=== PATIENT | male | born 1945 | race Caucasian/White ===

== ENCOUNTER 2016-10-20 09:25 | Emergency (ER) | payer MEDICARE, OTHER ==
[~2016-10-20] VITALS: Ht 188 cm; Wt 104.0 kg
[~2016-10-20 09:25] MED LIST: ACET-1757 PO; CALC300T5 PO; CYAN100028 PO; MULT-6 PO
[2016-10-20] MEDS ORDERED: SODIUM CHLORIDE 0.9% 1,000 ML IV ONE (10:24)
[2016-10-20] MEDS ORDERED: SODIUM CHLORIDE 0.9% 1,000ML IVBOLUS ONE (10:30)
[2016-10-20] MEDS ORDERED: SODIUM CHLORIDE FLUSH 10ML SYR IVF ONE (10:30)
[2016-10-20 10:58] LABS: ASPARTATE AMINO TRANSFERASE 21 U/L (15-37); BLOOD UREA NITROGEN 27 mg/dL (7-18)
[2016-10-20 11:01] VITALS: BP 119/74
[2016-10-21] MEDS ORDERED: TAMS0.4C2 PO (01:54)
[2016-10-21] MEDS ORDERED: FENO160T PO (01:56)
[2016-10-21] MEDS ORDERED: LEVO5TAB29 PO (01:58)
== END 2016-10-20 12:29 | disposition home or self-care (01) ==
LOC: ED 12:17
DX: R19.7 Diarrhea, unspecified (principal); E86.0 Dehydration; Z87.891 Personal history of nicotine dependence
CPT/HCPCS: 36415; 74020; 80053; 85025; 93005; 99285; J7030

== ENCOUNTER 2016-10-20 22:23 | Inpatient (IN) | payer MEDICARE, OTHER ==
[~2016-10-20] VITALS: Ht 188 cm; Wt 106.9 kg
[2016-10-21] MEDS ORDERED: ONDANSETRON 2MG/ML, 2ML ONE (00:42)
[2016-10-21] MEDS ORDERED: ONDANSETRON 2MG/ML, 2ML IVPush ONE (01:00)
[2016-10-21] MEDS ORDERED: SODIUM CHLORIDE 0.9% 1,000ML IVBOLUS ONE (01:00)
[2016-10-21] MEDS ORDERED: SODIUM CHLORIDE FLUSH 10ML SYR IVF ONE (01:00)
[2016-10-21 01:26] LABS: ASPARTATE AMINO TRANSFERASE 20 U/L (15-37); BLOOD UREA NITROGEN 40 mg/dL (7-18)
[2016-10-21] MEDS ORDERED: TAMS0.4C2 PO (01:54)
[2016-10-21] MEDS ORDERED: FENO160T PO (01:56)
[2016-10-21] MEDS ORDERED: LEVO5TAB29 PO (01:58)
[2016-10-21] MEDS ORDERED: TRAZODONE 50MG TABLET PO PRN (02:30)
[2016-10-21] MEDS ORDERED: DOCUSATE 100 MG CAPSULE PO PRN (02:30)
[2016-10-21] MEDS ORDERED: ACETAMINOPHEN 325 MG TABLET PO PRN (02:30)
[2016-10-21] MEDS ORDERED: BISACODYL 10 MG SUPP PR PRN (02:30)
[2016-10-21] MEDS ORDERED: POLYETHYLENE GLYCOL 17 GM PACKET PO PRN (02:30)
[2016-10-21] MEDS ORDERED: hydrALAzine 20 MG/ML, 1ML IVPush PRN (02:30)
[2016-10-21 02:37] VITALS: BP 124/78
[2016-10-21] MEDS: SODIUM CHLORIDE 0.9% 1,000 ML IV SCH ×5 (02:59→20:51)
[2016-10-21] MEDS: HEPARIN 5,000 UNITS/ML, 1ML SQ SCH ×3 (02:59→17:54)
[2016-10-21 05:38] LABS: BLOOD UREA NITROGEN 39 mg/dL (7-18)
[2016-10-21 06:56] VITALS: BP 97/53
[2016-10-21] MEDS: MULTIVITAMIN 1 TABLET PO SCH (08:32)
[2016-10-21] MEDS: CYANOCOBALAMIN 1,000 MCG TABLET PO SCH (08:32)
[2016-10-21] MEDS: TAMSULOSIN 0.4 MG CAP.ER.24H PO SCH (08:32)
[2016-10-21] MEDS: FENOFIBRATE 145 MG TABLET PO SCH (08:32)
[2016-10-21 13:52] VITALS: BP 112/77
[2016-10-21 19:52] VITALS: BP 115/74
[2016-10-22] MEDS: SODIUM CHLORIDE 0.9% 1,000 ML IV SCH ×4 (02:31→21:32)
[2016-10-22] MEDS: HEPARIN 5,000 UNITS/ML, 1ML SQ SCH ×3 (02:31→18:47)
[2016-10-22 02:54] VITALS: BP 111/67
[2016-10-22 07:35] VITALS: BP 147/79
[2016-10-22 08:32] LABS: ASPARTATE AMINO TRANSFERASE 17 U/L (15-37); BLOOD UREA NITROGEN 38 mg/dL (7-18)
[2016-10-22] MEDS: TAMSULOSIN 0.4 MG CAP.ER.24H PO SCH (08:59)
[2016-10-22] MEDS: FENOFIBRATE 145 MG TABLET PO SCH (08:59)
[2016-10-22] MEDS: CYANOCOBALAMIN 1,000 MCG TABLET PO SCH (08:59)
[2016-10-22] MEDS: MULTIVITAMIN 1 TABLET PO SCH (08:59)
[2016-10-22] MEDS: LOPERAMIDE 2 MG CAPSULE PO PRN (14:16)
[2016-10-22 14:33] VITALS: BP 126/70
[2016-10-22 20:05] VITALS: BP 119/76
[2016-10-23] MEDS: HEPARIN 5,000 UNITS/ML, 1ML SQ SCH ×3 (02:42→18:21)
[2016-10-23 03:07] VITALS: BP 112/71
[2016-10-23 05:28] LABS: BLOOD UREA NITROGEN 32 mg/dL (7-18)
[2016-10-23 07:50] VITALS: BP 123/72
[2016-10-23] MEDS: FENOFIBRATE 145 MG TABLET PO SCH (10:10)
[2016-10-23] MEDS: MULTIVITAMIN 1 TABLET PO SCH (10:10)
[2016-10-23] MEDS: TAMSULOSIN 0.4 MG CAP.ER.24H PO SCH (10:10)
[2016-10-23] MEDS: CYANOCOBALAMIN 1,000 MCG TABLET PO SCH (10:10)
[2016-10-23 14:30] VITALS: BP 125/75
[2016-10-23] MEDS: LOPERAMIDE 2 MG CAPSULE PO PRN (17:19)
[2016-10-23 19:13] VITALS: BP 116/68
[2016-10-24] MEDS: SODIUM CHLORIDE 0.9% 1,000 ML IV SCH ×3 (00:17→13:44)
[2016-10-24 01:43] VITALS: BP 109/60
[2016-10-24] MEDS: HEPARIN 5,000 UNITS/ML, 1ML SQ SCH ×2 (02:42→09:02)
[2016-10-24 05:23] LABS: BLOOD UREA NITROGEN 23 mg/dL (7-18)
[2016-10-24 05:32] LABS: ASPARTATE AMINO TRANSFERASE 20 U/L (15-37)
[2016-10-24] MEDS ORDERED: LOPE2CAP PO (06:44)
[2016-10-24 07:49] VITALS: BP 124/78
[2016-10-24] MEDS ORDERED: MAGNESIUM SULFATE PMX 2GM/50ML 50 ML IV ONE (08:00)
[2016-10-24] MEDS: MULTIVITAMIN 1 TABLET PO SCH (08:59)
[2016-10-24] MEDS: FENOFIBRATE 145 MG TABLET PO SCH (08:59)
[2016-10-24] MEDS: CYANOCOBALAMIN 1,000 MCG TABLET PO SCH (08:59)
[2016-10-24] MEDS: TAMSULOSIN 0.4 MG CAP.ER.24H PO SCH (08:59)
[2016-10-24] MEDS: LOPERAMIDE 2 MG CAPSULE PO PRN (09:01)
[2016-10-24 12:59] VITALS: BP 131/66
== END 2016-10-24 14:00 | disposition home or self-care (01) | DRG 393 ==
LOC: ED 23:59 → EDIP 10-21 01:49 → 4NOR 10-21 02:33 → DCLOUNGE 10-24 13:30
PROVIDERS: ADMIT Internal Medicine; ATTEND Internal Medicine
DX: K94.19 Other complications of enterostomy (principal); N17.0 Acute kidney failure with tubular necrosis; K51.90 Ulcerative colitis, unspecified, without complications; E87.1 Hypo-osmolality and hyponatremia; E87.2 Acidosis; N17.9 Acute kidney failure, unspecified; E86.0 Dehydration; D64.9 Anemia, unspecified; E86.1 Hypovolemia; N40.0 Benign prostatic hyperplasia without lower urinary tract symptoms; Z87.891 Personal history of nicotine dependence; Z90.49 Acquired absence of other specified parts of digestive tract; Z92.3 Personal history of irradiation
CPT/HCPCS: 36415; 80048; 80053; 82040; 83735; 85025; 85610; 87324; 89055; 96361; 96374; J1644; J2405; J3475; J7030

== ENCOUNTER 2019-10-10 12:51 | Inpatient (IN) | payer MEDICARE, OTHER ==
[~2019-10-10] VITALS: Ht 188 cm; Wt 94.4 kg
[~2019-10-10 12:51] MED LIST changes: -ACET-1757 PO; +ACET-2065 PO; +ACID1TAB7 PO; +AMOX1TAB64 PO; +ATROPINE PO; +CYAN-27 PO; +DIPH1TAB6 PO; +DIPHENOX PO; +Dronabinol PO; +ERGO500017 PO; +FENO160T PO; +FINA5TAB4 PO; +HYDR-3240 PO; +LEVO5TAB29 PO; +LOPE2CAP PO; +OPIU10TI2 PO; +PANT40TA5 PO; +SULF1TAB24 PO; +TAMS0.4C2 PO
--- NOTE | 2019-10-10 13:33 | NUR ---
first contact with pt. code 250 from infusion center today d/t abnormal lab. Na 120. K 4.3. Mg 0.5. Ca 6.6. creatinine 2.14 per infusion center. pt goes to infusion center 3 times a week for dehydration(M/W/F). pt c/o diarrhea x 2 weeks/dzy/neck tightness and bilateral blurred vision at this time. pt has R LQ ostomy bag/PICC line on R side/wound vac on abd. pt's aox4. resps even and unlabored. all monitors in place. call light within reach. family at bedside.
--- NOTE | 2019-10-10 13:38 | NUR ---
iso cart placed d/t MRSA.
--- NOTE | 2019-10-10 13:55 | NUR ---
EDMD AT BEDSIDE TO EVALUATE AT THIS TIME.
--- NOTE | 2019-10-10 14:07 | NUR ---
MED ORDERED FROM PHARMACY AT THIS TIME.
[2019-10-10] MEDS ORDERED: SODIUM CHLORIDE FLUSH 10ML SYR IVF ONE (14:30)
[2019-10-10] MEDS ORDERED: SODIUM CHLORIDE FLUSH 10ML SYR IVF PRN (14:30)
[2019-10-10] MEDS ORDERED: SODIUM CHLORIDE 0.9% IV ONE (14:30)
[2019-10-10] MEDS ORDERED: MAG SULFATE IV ONE (14:30)
[2019-10-10] MEDS ORDERED: OPIU10TI2 PO ×2 (14:53→15:10)
--- NOTE | 2019-10-10 14:54 | NUR ---
pt resting in [facility]. pt's aox4. resps even and unlabored. all monitors in place. call light within reach. family member at bedside.
--- NOTE | 2019-10-10 15:52 | NUR ---
HOSPITALIST AT BEDSIDE TO EVALUATE AT THIS TIME. PT'S AOX4. RESPS EVEN AND UNLABORED.
--- NOTE | 2019-10-10 15:52 | NUR ---
MAG INFUSING VIA PICC LINE AT THIS TIME. EDMD OK'D TO USE PICC LINE FOR MAG.
--- NOTE | 2019-10-10 16:01 | NUR ---
REPORT GIVEN TO CHELSEA MELVIN. ALL QUESTIONS ANSWERED.
[2019-10-10 16:25] LABS: BASOPHILS # (AUTO) 0.01 x10^3/uL (0-0.1); BASOPHILS % (AUTO) 0 % (0-1); EOSINOPHILS # (AUTO) 0.04 x10^3/uL (0-0.4); EOSINOPHILS % (AUTO) 1 % (1-7); LYMPHOCYTES % (AUTO) 10 % (22-44); MD NO; MEAN CORPUSCULAR HEMOGLOBIN 31.1 pg (27.5-34.5); MEAN CORPUSCULAR HGB CONC 33.7 g/dL (33.2-36.2); MEAN CORPUSCULAR VOLUME 92.6 fL (81-97); MEAN PLATELET VOLUME 7.4 fL (7.4-10.4); MONOCYTES # (AUTO) 0.65 x10^3/uL (0.2-0.8); MONOCYTES % (AUTO) 11 % (2-9); NEUTROPHILS # (AUTO) 4.69 x10^3/uL (1.8-6.8); NEUTROPHILS % (AUTO) 78 % (42-75); PLATELET COUNT 200 x10^3/uL (130-400); RED BLOOD COUNT 3.73 x10^6/uL (4.38-5.82); RED CELL DISTRIBUTION WIDTH 13.9 % (9.4-14.8)
[2019-10-10] MEDS ORDERED: MAGNESIUM SULFATE PMX 4GM/100M 100 ML IV ONE (16:30)
--- NOTE | 2019-10-10 16:48 | NUR ---
PT LEFT STOOL SAMPLE IN ROOM FATER TRANSFFERED. IT LOOKS LIKE C-DIFF. THIS RN CALLED HOSPITALIST BUT NO ANSWER. THIS RN CALLED CHELSEA RN AND CHELSEA RN WILL ORDER AND TALK TO HOSPITALIST LATER. THIS RN COLLECTED AND WALKED TO LAB.
[2019-10-10] MEDS: SODIUM CHLORIDE 0.9% 1,000 ML IV SCH ×2 (17:02→23:28)
[2019-10-10] MEDS: HEPARIN 5,000 UNITS/ML, 1ML SQ SCH (17:07)
[2019-10-10 19:01] LABS: CLOSTRIDIUM DIFFICILE ANTIGEN NEGATIVE; CLOSTRIDIUM DIFFICILE TOXIN NEGATIVE (Negative)
[2019-10-10 20:00] VITALS: BP 101/52
[2019-10-10] MEDS: PSYLLIUM PACKET PO SCH (21:00)
[2019-10-10] MEDS: LOPERAMIDE 2 MG CAPSULE PO SCH (21:40)
[2019-10-11] MEDS: HEPARIN 5,000 UNITS/ML, 1ML SQ SCH ×3 (01:14→17:20)
[2019-10-11 01:30] VITALS: BP 107/64
[2019-10-11 02:00] VITALS: BP 108/56
[2019-10-11 03:20] LABS: BASOPHILS # (AUTO) 0.02 x10^3/uL (0-0.1); BASOPHILS % (AUTO) 0 % (0-1); EOSINOPHILS % (AUTO) 2 % (1-7); LYMPHOCYTES # (AUTO) 0.52 x10^3/uL (1-3.4); LYMPHOCYTES % (AUTO) 11 % (22-44); MD NO; MEAN CORPUSCULAR HEMOGLOBIN 31.2 pg (27.5-34.5); MEAN CORPUSCULAR HGB CONC 33.9 g/dL (33.2-36.2); MEAN CORPUSCULAR VOLUME 91.9 fL (81-97); MEAN PLATELET VOLUME 7.1 fL (7.4-10.4); MONOCYTES # (AUTO) 0.51 x10^3/uL (0.2-0.8); MONOCYTES % (AUTO) 11 % (2-9); NEUTROPHILS # (AUTO) 3.61 x10^3/uL (1.8-6.8); NEUTROPHILS % (AUTO) 76 % (42-75); PLATELET COUNT 215 x10^3/uL (130-400); RED BLOOD COUNT 3.49 x10^6/uL (4.38-5.82); RED CELL DISTRIBUTION WIDTH 13.9 % (9.4-14.8)
[2019-10-11 03:31] LABS: ALANINE AMINOTRANSFERASE 35 U/L (12-78); ANION GAP 9 mmol/L (5-15); CALCIUM 6.7 mg/dL (8.5-10.1); CHLORIDE 90 mmol/L (98-107); CREATININE 1.49 mg/dL (0.7-1.3)
[2019-10-11 03:33] LABS: ALKALINE PHOSPHATASE 67 U/L (45-117); BILIRUBIN,TOTAL 0.4 mg/dL (0.2-1.0); TOTAL PROTEIN 7.3 g/dL (6.4-8.2)
[2019-10-11] MEDS: LOPERAMIDE 2 MG CAPSULE PO SCH ×4 (05:21→20:26)
[2019-10-11] MEDS: SODIUM CHLORIDE 0.9% 1,000 ML IV SCH (05:22)
[2019-10-11 07:22] VITALS: BP 114/64
[2019-10-11] MEDS: PSYLLIUM PACKET PO SCH ×2 (10:10→20:26)
[2019-10-11] MEDS: FINASTERIDE 5 MG TABLET PO SCH (10:11)
[2019-10-11] MEDS: CYANOCOBALAMIN 1,000 MCG TABLET PO SCH (10:11)
[2019-10-11] MEDS: MULTIVITAMIN 1 TABLET PO SCH (10:11)
[2019-10-11] MEDS: TAMSULOSIN 0.4 MG CAP.ER.24H PO SCH (10:11)
[2019-10-11] MEDS: FENOFIBRATE 145 MG TABLET PO SCH (10:11)
[2019-10-11] MEDS ORDERED: NS + 40MEQ KCL 1,000 ML IV SCH (10:37)
[2019-10-11] MEDS ORDERED: MAGNESIUM SULFATE PMX 2GM/50ML 50 ML IV ONE (11:00)
[2019-10-11] MEDS: NS + 40MEQ KCL 1,000 ML IV SCH ×2 (11:05→20:27)
[2019-10-11 12:53] VITALS: BP 108/61
[2019-10-11 19:29] VITALS: BP 103/57
[2019-10-11] MEDS: DIPHENOXYLATE/ATROPINE TABLET PO PRN (20:27)
[2019-10-12] MEDS: HEPARIN 5,000 UNITS/ML, 1ML SQ SCH ×3 (01:32→15:26)
[2019-10-12 02:00] VITALS: BP 107/64
[2019-10-12] MEDS: NS + 40MEQ KCL 1,000 ML IV SCH ×4 (04:00→22:46)
[2019-10-12] MEDS: LOPERAMIDE 2 MG CAPSULE PO SCH ×4 (05:09→21:13)
[2019-10-12] MEDS: DIPHENOXYLATE/ATROPINE TABLET PO PRN ×2 (05:10→15:23)
[2019-10-12 05:51] LABS: ANION GAP 7 mmol/L (5-15); CALCIUM 7.2 mg/dL (8.5-10.1); CHLORIDE 101 mmol/L (98-107); CREATININE 1.32 mg/dL (0.7-1.3)
[2019-10-12 07:01] VITALS: BP 108/65
[2019-10-12] MEDS: MULTIVITAMIN 1 TABLET PO SCH (08:05)
[2019-10-12] MEDS: CYANOCOBALAMIN 1,000 MCG TABLET PO SCH (08:05)
[2019-10-12] MEDS: FENOFIBRATE 145 MG TABLET PO SCH (08:05)
[2019-10-12] MEDS: TAMSULOSIN 0.4 MG CAP.ER.24H PO SCH (08:05)
[2019-10-12] MEDS: FINASTERIDE 5 MG TABLET PO SCH (08:06)
[2019-10-12] MEDS: PSYLLIUM PACKET PO SCH ×2 (08:07→21:14)
[2019-10-12] MEDS: OPIUM TINCTURE 1% 10 MG/ML ORAL.SOL PO SCH ×2 (10:51→21:13)
[2019-10-12 13:27] VITALS: BP 109/61
[2019-10-12 20:00] VITALS: BP 120/77
[2019-10-13] MEDS: HEPARIN 5,000 UNITS/ML, 1ML SQ SCH ×3 (00:28→16:46)
[2019-10-13] MEDS: DIPHENOXYLATE/ATROPINE TABLET PO PRN (00:29)
[2019-10-13 01:19] VITALS: BP 125/82
[2019-10-13] MEDS: LOPERAMIDE 2 MG CAPSULE PO SCH ×4 (05:24→20:29)
[2019-10-13 05:43] LABS: ANION GAP 7 mmol/L (5-15); CALCIUM 7.5 mg/dL (8.5-10.1); CHLORIDE 105 mmol/L (98-107); CREATININE 1.29 mg/dL (0.7-1.3)
[2019-10-13] MEDS: NS + 40MEQ KCL 1,000 ML IV SCH ×2 (05:44→13:23)
[2019-10-13 07:22] VITALS: BP 113/70
[2019-10-13] MEDS: MULTIVITAMIN 1 TABLET PO SCH (09:19)
[2019-10-13] MEDS: PSYLLIUM PACKET PO SCH ×2 (09:19→20:29)
[2019-10-13] MEDS: FENOFIBRATE 145 MG TABLET PO SCH (09:19)
[2019-10-13] MEDS: TAMSULOSIN 0.4 MG CAP.ER.24H PO SCH (09:20)
[2019-10-13] MEDS: CYANOCOBALAMIN 1,000 MCG TABLET PO SCH (09:20)
[2019-10-13] MEDS: FINASTERIDE 5 MG TABLET PO SCH (09:20)
[2019-10-13] MEDS: OPIUM TINCTURE 1% 10 MG/ML ORAL.SOL PO SCH ×2 (10:25→20:55)
[2019-10-13 12:28] VITALS: BP 111/65
[2019-10-13] MEDS: MAGNESIUM CHLORIDE 64 MG TABLET.DR PO SCH ×2 (13:22→20:29)
[2019-10-13] MEDS: SODIUM CHLORIDE 1 GM TABLET PO SCH (13:22)
[2019-10-13] MEDS: SODIUM CHLORIDE 0.9% 1,000 ML IV SCH (17:14)
[2019-10-13 19:20] VITALS: BP 121/69
[2019-10-14] MEDS: SODIUM CHLORIDE 0.9% 1,000 ML IV SCH ×2 (00:08→06:54)
[2019-10-14] MEDS: HEPARIN 5,000 UNITS/ML, 1ML SQ SCH ×2 (00:08→08:30)
[2019-10-14 00:32] VITALS: BP 112/65
[2019-10-14] MEDS: LOPERAMIDE 2 MG CAPSULE PO SCH ×2 (05:25→09:39)
[2019-10-14 06:43] LABS: ANION GAP 6 mmol/L (5-15); CALCIUM 7.3 mg/dL (8.5-10.1); CHLORIDE 111 mmol/L (98-107)
[2019-10-14 06:45] LABS: CREATININE 1.06 mg/dL (0.7-1.3)
[2019-10-14 07:06] VITALS: BP 132/75
[2019-10-14] MEDS ORDERED: PSYL3.4P8 PO (09:07)
[2019-10-14] MEDS ORDERED: DIPH1TAB6 PO (09:07)
[2019-10-14] MEDS ORDERED: MAGN70TA2 PO (09:07)
[2019-10-14] MEDS ORDERED: SODI1TAB PO (09:07)
[2019-10-14] MEDS: MAGNESIUM CHLORIDE 64 MG TABLET.DR PO SCH (09:38)
[2019-10-14] MEDS: SODIUM CHLORIDE 1 GM TABLET PO SCH (09:38)
[2019-10-14] MEDS: MULTIVITAMIN 1 TABLET PO SCH (09:39)
[2019-10-14] MEDS: FENOFIBRATE 145 MG TABLET PO SCH (09:39)
[2019-10-14] MEDS: TAMSULOSIN 0.4 MG CAP.ER.24H PO SCH (09:39)
[2019-10-14] MEDS: CYANOCOBALAMIN 1,000 MCG TABLET PO SCH (09:39)
[2019-10-14] MEDS: PSYLLIUM PACKET PO SCH (10:13)
[2019-10-14] MEDS: FINASTERIDE 5 MG TABLET PO SCH (10:14)
[2019-10-14] MEDS: OPIUM TINCTURE 1% 10 MG/ML ORAL.SOL PO SCH (10:14)
[2019-10-14 12:42] VITALS: BP 114/65
== END 2019-10-14 14:19 | disposition home health service (06) | DRG 683 ==
LOC: ED 14:18 → EDIP 14:22 → 4WST 16:34 → DCLOUNGE 10-14 13:56
PROVIDERS: ADMIT Internal Medicine; ATTEND Internal Medicine
DX: N17.0 Acute kidney failure with tubular necrosis (principal); E87.1 Hypo-osmolality and hyponatremia; N40.0 Benign prostatic hyperplasia without lower urinary tract symptoms; E83.42 Hypomagnesemia; D64.9 Anemia, unspecified; N18.9 Chronic kidney disease, unspecified; E83.51 Hypocalcemia; E87.6 Hypokalemia; E86.0 Dehydration
CPT/HCPCS: 36415; 71045; 80048; 80053; 83735; 84100; 84295; 85025; 87324; 93005; 96374; G0378; J1644; J3475; J3480; J7030

== ENCOUNTER → 2019-12-29 | Outpatient (CLI) | payer MEDICARE, OTHER ==
[~2019-12-29] MED LIST changes: +MAGN70TA2 PO; +OMEP40CA42 PO; +PSYL3.4P8 PO; +SODI1TAB PO
== END | disposition home or self-care (01) ==
LOC: RAD 07:24
PROVIDERS: ATTEND Internal Medicine Gastroenterology
DX: K94.19 Other complications of enterostomy (principal); K30 Functional dyspepsia
CPT/HCPCS: 74240